=== PATIENT | male | born 1965 | race Caucasian/White ===

== ENCOUNTER 2019-12-01 12:14 | Inpatient (IN) | payer OTHER, SELFPAY ==
[~2019-12-01 12:14] MED LIST: Lidocaine 1% PF 5 ML VIAL ONE; PROPOFOL 200 MG/20 ML VIAL ONE
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
[2019-12-01] MEDS ORDERED: Morphine 4 MG/ML VIAL ONE ×2 (12:36→14:46)
[2019-12-01 12:41] LABS: #Basophils 0.1 thou/uL (0.0-0.2); #Eosinphils 0.1 thou/uL (0.0-0.7); #Lymphocytes 2.6 thou/uL (1.20-3.40); #Neutrophils 9.1 thou/uL (1.40-6.50); %Basophils 0.8 % (0.0-1.0); %Eosinophils 0.8 % (0.0-10.0); %Lymphocytes 20.1 % (21.0-51.0); %Neutrophils 70.3 % (42.0-75.0); Hemoglobin 15.6 g/dL (14.0-18.0); Mean Corpuscular HGB CONC 35.2 g/dL (32.0-36.0); Mean Corpuscular Hemoglobin 32.6 pg (27.0-31.0); Mean Corpuscular Volume 92.6 fL (78.0-98.0); Mean Platelet Volume 7.5 fL (7.4-10.4); Platelet Count 282 thou/uL (130-400); RBC Distribution Width 12.4 % (11.5-14.5); Red Blood Cell (RBC) Count 4.78 mill/uL (4.70-6.10); White Blood Cell (WBC) Count 12.9 thou/uL (4.8-10.8)
[2019-12-01 12:47] LABS: Prothrombin Time 13.4 sec (12.0-14.7)
[2019-12-01 12:53] LABS: PTT 21.5 sec (22.9-36.1)
[2019-12-01 13:02] LABS: ALT (SGPT) 54 U/L (8-55); AST (SGOT) 62 U/L (5-34); Albumin 4.2 g/dL (3.5-5.0); Alkaline Phosphatase 160 U/L (40-110); Anion Gap 15 mmol/L (10-20); BUN (Urea Nitrogen) 15 mg/dL (8.4-25.7); Bilirubin, Total 0.4 mg/dL (0.2-1.2); Calc. Creatinine Clearance 0 mL/min (70-130); Calcium 8.8 mg/dL (7.8-10.44); Carbon Dioxide 21 mmol/L (22-29); Chloride 108 mmol/L (98-107); Estimated GFR-MDRD 63; Globulin 2.9 g/dL (2.4-3.5); Glucose 122 mg/dL (70-105); Lipase 24 U/L (8-78); Potassium 4.2 mmol/L (3.5-5.1); Protein, Total 7.1 g/dL (6.0-8.3); Sodium 140 mmol/L (136-145)
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
[2019-12-01] MEDS ORDERED: Fentanyl 100 MCG/2 ML VIAL ONE ×4 (13:16→17:11)
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
[2019-12-01] MEDS ORDERED: Bacitracin 1 PK ONE (13:46)
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
[2019-12-01] MEDS ORDERED: Iopamidol-370 76% 500 ML 1 ML ONE (14:49)
[2019-12-01] MEDS ORDERED: Ondansetron HCl/PF 4 MG/2 ML Vial IVP PRN (17:09)
[2019-12-01] MEDS ORDERED: Promethazine HCl 25 MG/ML VIAL SLOW IVP PRN (17:09)
[2019-12-01] MEDS ORDERED: Promethazine HCl 25 MG/ML VIAL IM PRN (17:09)
[2019-12-01] MEDS ORDERED: Meperidine HCl/PF 25 MG/ML VIAL SLOW IVP PRN (17:09)
[2019-12-01] MEDS ORDERED: HYDROmorphone 2 MG/ML VIAL SLOW IVP PRN (17:09)
[2019-12-01 17:26] LABS: SARS-CoV-2 NAA Rapid Test Not Detected (NotDetected)
[2019-12-01] MEDS ORDERED: HYDROmorphone 0.5 MG/0.5 ML SYRINGE ONE (17:28)
[2019-12-01] MEDS ORDERED: Dextrose 5% in Water 1,000 ML IV PRN (18:27)
[2019-12-01] MEDS ORDERED: Dextrose 50% Abboject 50 ML SYRINGE SLOW IVP PRN (18:27)
[2019-12-01] MEDS ORDERED: Cyclobenzaprine 10 MG TAB PO PRN (18:27)
[2019-12-01] MEDS ORDERED: traMADol HCl 50 MG TAB PO PRN (18:27)
[2019-12-01] MEDS ORDERED: Sodium Chloride 0.9% 1,000 ML IV SCH (18:27)
[2019-12-01] MEDS ORDERED: Ondansetron PF 4 MG/2 ML Vial IVP PRN (18:27)
[2019-12-01] MEDS ORDERED: hydrALAZINE 20 MG/ML VIAL SLOW IVP PRN (18:27)
[2019-12-01] MEDS ORDERED: Ondansetron ODT 4 MG TAB PO PRN (18:27)
--- NOTE | 2019-12-01 18:34 | RAD ---
RADIOGRAPH RIGHT SHOULDER THREE VIEWS: DATE: 12-01-2019 TIME: 5:56 P.M. HISTORY: Status post reduction of acute, traumatic right proximal humeral fracture. COMPARISON: 11-30-2019 at 1:58 p.m. FINDINGS: The humeral diaphysis is in much closer proximity to the comminuted humeral head now than before, but there is still some displacement. There is lateral angulation of the fracture apex of the humeral ne ck fracture. The humeral head is no longer subluxed relative to the glenoid. IMPRESSION: Interval improvement in alignment after closed reduction, of the comminuted, displaced, severe right humeral head and neck fracture. POS: JIN
--- NOTE | 2019-12-01 19:36 | CT ---
CT OF THE LEFT WRIST WITHOUT CONTRAST: History: Distal radial fracture. FINDINGS: There is a comminuted, dorsally impacted intraarticular distal radial fracture. A small avulsion frac ture of the dorsal aspect of the triquetral bone is noted. A well corticated tiny bony fragment is seen distal to the scaphoid bone, likely old fracture. A que stionable acute fracture in the distal pole of the scaphoid maybe present. There is a small minimally displaced intraarticular fracture of the dorsal aspect of the base of the proximal aspect of the thumb. IMPRESSION: As above. POS: OFF
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
[2019-12-01 19:40] VITALS: BMI 26.9
[2019-12-01] MEDS ORDERED: Morphine 2 MG/ML VIAL SLOW IVP PRN (19:47)
[2019-12-01] MEDS ORDERED: Ketorolac Tromethamine 30 MG/ML VIAL IVP SCH (20:00)
[2019-12-01] MEDS: Gabapentin 300 MG CAP PO SCH (20:27)
[2019-12-01] MEDS ORDERED: Verapamil 120 MG TAB PO SCH (21:00)
[2019-12-01] MEDS ORDERED: Famotidine 20 MG TAB PO SCH (21:00)
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
[2019-12-01] MEDS ORDERED: Ibuprofen 600 MG TAB PO SCH (22:00)
[2019-12-01] MEDS ORDERED: Acetaminophen 325 MG TAB PO SCH (23:59)
[2019-12-01] MEDS ORDERED: traMADol HCl 50 MG TAB PO SCH (23:59)
[2019-12-02] MEDS ORDERED: traMADol HCl 50 MG TAB PO PRN ×3 (00:05→11:32)
[2019-12-02] MEDS ORDERED: Morphine 2 MG/ML VIAL SLOW IVP PRN (00:07)
[2019-12-02] MEDS ORDERED: Ondansetron ODT 4 MG TAB PO PRN (00:07)
[2019-12-02] MEDS ORDERED: Ondansetron PF 4 MG/2 ML Vial IVP PRN ×2 (00:07→11:32)
[2019-12-02] MEDS ORDERED: hydrALAZINE 20 MG/ML VIAL SLOW IVP PRN (00:08)
[2019-12-02] MEDS ORDERED: Dextrose 5% in Water 1,000 ML IV PRN (00:09)
[2019-12-02] MEDS ORDERED: Dextrose 50% Abboject 50 ML SYRINGE SLOW IVP PRN (00:09)
[2019-12-02] MEDS: traMADol HCl 50 MG TAB PO SCH ×5 (00:19→23:34)
[2019-12-02] MEDS: Sodium Chloride 0.9% 1,000 ML IV SCH ×2 (00:20→08:18)
[2019-12-02] MEDS: Acetaminophen 325 MG TAB PO SCH ×5 (00:20→23:34)
[2019-12-02] MEDS: Ibuprofen 600 MG TAB PO SCH ×3 (05:39→21:25)
[2019-12-02] MEDS ORDERED: CEFAZOLIN 2 GM in Premix Bag 1 BAG IVPB SCH (07:30)
[2019-12-02] MEDS: Gabapentin 300 MG CAP PO SCH ×2 (08:15→21:26)
[2019-12-02] MEDS ORDERED: Famotidine 20 MG TAB PO SCH (09:00)
[2019-12-02] MEDS ORDERED: PHENYLEPHRINE-NS 100 MCG/ML 10 ML SYRINGE ONE (09:47)
[2019-12-02] MEDS ORDERED: Lidocaine 1% PF 5 ML VIAL ONE (09:47)
[2019-12-02] MEDS ORDERED: Ropivacaine 0.2% HCl/PF (40 MG/20 ML VIAL) ONE (09:47)
[2019-12-02] MEDS ORDERED: PROPOFOL 200 MG/20 ML VIAL ONE (09:47)
[2019-12-02] MEDS ORDERED: Ondansetron PF 4 MG/2 ML Vial ONE (09:47)
[2019-12-02] MEDS ORDERED: Rocuronium Bromide 10 MG/ML (10ML VIAL) ONE (09:47)
[2019-12-02] MEDS ORDERED: EPHEDRINE 25 MG/5 ML SYRINGE ONE (09:47)
[2019-12-02] MEDS ORDERED: Ropivacaine 0.5% HCl/PF (150 MG/30 ML VIAL) ONE (09:47)
[2019-12-02] MEDS ORDERED: Fentanyl 100 MCG/2 ML VIAL ONE ×2 (11:09→12:12)
[2019-12-02] MEDS ORDERED: Midazolam HCl 2 mg/2 ml Vial ONE (11:09)
[2019-12-02] MEDS ORDERED: Ropivacaine 0.2% 550 ML 550 ML NERVE BLCK SCH (11:32)
[2019-12-02] MEDS ORDERED: Ketorolac Tromethamine 30 MG/ML VIAL IVP PRN (11:32)
[2019-12-02] MEDS ORDERED: Promethazine HCl 25 MG/ML VIAL IM PRN ×2 (11:32→16:15)
[2019-12-02] MEDS ORDERED: HYDROcodone/Acetaminophen 5/325 mg Tablet PO PRN ×2 (11:32)
[2019-12-02] MEDS ORDERED: Zolpidem Tartrate 5 MG TAB PO PRN (11:32)
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
--- NOTE | 2019-12-02 16:06 | RAD ---
XR Humerus Rt 2 View STANDARD History: ORIF Comparison: None. Findings: 5 fluoroscopic images were obtained from the operating room. Reverse right total shoulder a rthroplasty. Impression: Fluoroscopy for surgical purposes.
[2019-12-02] MEDS ORDERED: Promethazine HCl 25 MG/ML VIAL SLOW IVP PRN (16:15)
[2019-12-02] MEDS ORDERED: Ondansetron HCl/PF 4 MG/2 ML Vial IVP PRN (16:15)
[2019-12-02] MEDS: CEFAZOLIN 2 GM in Premix Bag 1 BAG IVPB SCH (21:26)
[2019-12-02] MEDS: Cyclobenzaprine 10 MG TAB PO PRN (23:35)
[2019-12-03] MEDS: Acetaminophen 325 MG TAB PO SCH (05:12)
[2019-12-03] MEDS: traMADol HCl 50 MG TAB PO SCH ×4 (05:12→23:34)
[2019-12-03] MEDS: Ibuprofen 600 MG TAB PO SCH ×3 (05:12→21:24)
[2019-12-03] MEDS: CEFAZOLIN 2 GM in Premix Bag 1 BAG IVPB SCH (05:13)
[2019-12-03 05:25] LABS: Hemoglobin 10.9 g/dL (14.0-18.0)
[2019-12-03 07:10] LABS: Hemoglobin 10.8 g/dL (14.0-18.0); Mean Corpuscular HGB CONC 33.1 g/dL (32.0-36.0); Mean Corpuscular Hemoglobin 31.4 pg (27.0-31.0); Mean Corpuscular Volume 94.9 fL (78.0-98.0); Mean Platelet Volume 7.2 fL (7.4-10.4); Platelet Count 179 thou/uL (130-400); RBC Distribution Width 12.4 % (11.5-14.5); Red Blood Cell (RBC) Count 3.43 mill/uL (4.70-6.10); White Blood Cell (WBC) Count 6.9 thou/uL (4.8-10.8)
[2019-12-03 07:32] LABS: Anion Gap 10 mmol/L (10-20); BUN (Urea Nitrogen) 13 mg/dL (8.4-25.7); Calc. Creatinine Clearance 131 mL/min (70-130); Calcium 7.5 mg/dL (7.8-10.44); Carbon Dioxide 25 mmol/L (22-29); Chloride 105 mmol/L (98-107); Estimated GFR-MDRD Greater than 90; Glucose 106 mg/dL (70-105); Magnesium 1.8 mg/dL (1.6-2.6); Phosphorus 3.2 mg/dL (2.3-4.7); Potassium 3.4 mmol/L (3.5-5.1); Sodium 137 mmol/L (136-145)
[2019-12-03] MEDS ORDERED: Magnesium 2 GM/50 ML 2 GM in Premix Bag 1 BAG IVPB SCH (07:45)
[2019-12-03] MEDS ORDERED: Potassium Phosphate 30 MMOL in Sodium Chloride 0.9% 250 ML 250 ML IVPB SCH (07:45)
[2019-12-03] MEDS: Gabapentin 300 MG CAP PO SCH ×4 (08:12→21:21)
[2019-12-03] MEDS: Enoxaparin Sodium 40 MG/0.4 ML SYRINGE SC SCH (08:12)
[2019-12-03] MEDS: traMADol HCl 50 MG TAB PO PRN (08:46)
[2019-12-03] MEDS: Acetaminophen 500 MG TAB PO SCH ×3 (08:46→21:21)
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
[2019-12-03] MEDS: Cyclobenzaprine 10 MG TAB PO PRN ×2 (11:20→23:36)
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
--- NOTE | 2019-12-04 00:23 | PRG ---
DATE OF SERVICE: 12/03/2019 SUBJECTIVE: The patient was seen during evening rounds, sleeping, in no distress. The patient's nurse reports no complaints or concerns. The patient is postop day #1, status post reverse shoulder arthroplasty to the right. The patient's vital signs are stable and he remains afebrile. The patient's urinary output has been adequate for the patient's age and weight. PLAN: Continue supportive care and pain regimen. We will continue physical and occupational therapy. Job ID: [id number]
[2019-12-04] MEDS: Acetaminophen 500 MG TAB PO SCH ×4 (03:31→21:08)
[2019-12-04 04:59] LABS: #Eosinphils 0.2 thou/uL (0.0-0.7); #Lymphocytes 1.5 thou/uL (1.20-3.40); #Monocytes 0.7 thou/uL (0.11-0.59); #Neutrophils 4.3 thou/uL (1.40-6.50); %Basophils 0.4 % (0.0-1.0); %Eosinophils 3.4 % (0.0-10.0); %Lymphocytes 21.7 % (21.0-51.0); %Monocytes 10.4 % (0.0-10.0); %Neutrophils 64.1 % (42.0-75.0); Hemoglobin 10.9 g/dL (14.0-18.0); INR-International Normal Ratio 1.2; Mean Corpuscular HGB CONC 33.3 g/dL (32.0-36.0); Mean Corpuscular Hemoglobin 31.9 pg (27.0-31.0); Mean Corpuscular Volume 95.7 fL (78.0-98.0); Mean Platelet Volume 7.5 fL (7.4-10.4); Platelet Count 193 thou/uL (130-400); Prothrombin Time 14.7 sec (12.0-14.7); RBC Distribution Width 12.1 % (11.5-14.5); Red Blood Cell (RBC) Count 3.43 mill/uL (4.70-6.10); White Blood Cell (WBC) Count 6.7 thou/uL (4.8-10.8)
[2019-12-04 05:00] LABS: PTT 43.9 sec (22.9-36.1)
[2019-12-04 05:16] LABS: Anion Gap 12 mmol/L (10-20); BUN (Urea Nitrogen) 12 mg/dL (8.4-25.7); Calc. Creatinine Clearance 152 mL/min (70-130); Calcium 7.8 mg/dL (7.8-10.44); Carbon Dioxide 24 mmol/L (22-29); Chloride 104 mmol/L (98-107); Estimated GFR-MDRD Greater than 90; Glucose 102 mg/dL (70-105); Magnesium 2.2 mg/dL (1.6-2.6); Phosphorus 2.8 mg/dL (2.3-4.7); Potassium 3.6 mmol/L (3.5-5.1); Sodium 136 mmol/L (136-145)
[2019-12-04] MEDS: traMADol HCl 50 MG TAB PO SCH ×4 (05:35→23:26)
[2019-12-04] MEDS: Ibuprofen 600 MG TAB PO SCH ×3 (05:35→21:09)
[2019-12-04] MEDS ORDERED: Potassium Phosphate 30 MMOL in Sodium Chloride 0.9% 250 ML 250 ML IVPB SCH (07:30)
[2019-12-04] MEDS: Gabapentin 300 MG CAP PO SCH ×3 (08:02→21:08)
[2019-12-04] MEDS: Enoxaparin Sodium 40 MG/0.4 ML SYRINGE SC SCH (08:04)
[2019-12-04] MEDS ORDERED: Bisacodyl 5 MG TAB PO PRN (09:47)
[2019-12-04] MEDS ORDERED: Ketorolac Tromethamine 30 MG/ML VIAL ONE (10:15)
[2019-12-04] MEDS ORDERED: Ondansetron PF 4 MG/2 ML Vial ONE (10:15)
[2019-12-04] MEDS ORDERED: Metoclopramide HCl 10 MG/2 ML VIAL ONE (10:15)
[2019-12-04] MEDS ORDERED: Dexamethasone 20 MG/5 ML VIAL ONE (10:15)
[2019-12-04] MEDS ORDERED: Lidocaine 1% PF 5 ML VIAL ONE (10:15)
[2019-12-04] MEDS ORDERED: PROPOFOL 200 MG/20 ML VIAL ONE (10:15)
[2019-12-04] MEDS ORDERED: Bupivacaine HCl 0.5%/Epinephrine 1:200,000/PF 30 ml Vial ONE (10:15)
[2019-12-04] MEDS: Polyethylene Glycol 3350 17 GM Packet PO SCH (10:40)
[2019-12-04] MEDS: Senokot S 8.6-50 MG TAB PO SCH ×2 (10:41→21:08)
[2019-12-04] MEDS ORDERED: Fentanyl 100 MCG/2 ML VIAL ONE ×4 (13:43→17:59)
[2019-12-04] MEDS ORDERED: Midazolam HCl 2 mg/2 ml Vial ONE (13:43)
[2019-12-04] MEDS ORDERED: Famotidine/PF 20 mg/2ml Vial ONE (14:24)
[2019-12-04] MEDS ORDERED: Sodium Chloride 0.9% 10 ML ONE (15:02)
[2019-12-04] MEDS ORDERED: Bacitracin Zinc Ointment 30 gm TUBE ONE (15:19)
--- NOTE | 2019-12-04 16:36 | RAD ---
Exam:Intraoperative fluoroscopy HISTORY: ORIF wrist fracture COMPARISON: None FINDINGS: 7 intraoperative fluoroscopic procedures demonstrate internal fixation bridging a distal ra dius fracture. Exposure: 1.09 mGy 1 minute and 34 seconds IMPRESSION: Intraoperative fluoroscopy as above
[2019-12-04] MEDS ORDERED: HYDROmorphone 2 MG/ML VIAL SLOW IVP PRN (17:17)
[2019-12-04] MEDS ORDERED: Meperidine HCl/PF 25 MG/ML VIAL SLOW IVP PRN (17:17)
[2019-12-04] MEDS ORDERED: PACU-Morphine 4MG/ML VIAL SLOW IVP PRN (17:17)
[2019-12-04] MEDS ORDERED: Morphine Sulfate 2 MG/ML SYRINGE SLOW IVP PRN (17:17)
[2019-12-04] MEDS ORDERED: Promethazine HCl 25 MG/ML VIAL IM PRN (17:17)
[2019-12-04] MEDS ORDERED: Ondansetron HCl/PF 4 MG/2 ML Vial IVP PRN (17:17)
[2019-12-04] MEDS ORDERED: Promethazine HCl 25 MG/ML VIAL SLOW IVP PRN (17:17)
[2019-12-04] MEDS ORDERED: Morphine 4 MG/ML VIAL SLOW IVP PRN (17:45)
[2019-12-04] MEDS: ceFAZolin 1 GM/D5W 1 GM in Premix Bag 1 BAG IVPB SCH (21:09)
--- NOTE | 2019-12-04 21:37 | PRG ---
DATE OF SERVICE: 12/04/2019 SUBJECTIVE: The patient was seen during evening rounds, awake, alert, in no distress. The patient has just returned from the OR after repair of his left radius. The patient's pain is well controlled at this time. The patient is tolerating a regular diet. OBJECTIVE: Vital signs are stable. The patient is afebrile. PLAN: Continue supportive care and pain regimen. Physical and occupational therapy. Continue pulmonary toilet. Job ID: [id number]
[2019-12-04] MEDS ORDERED: CEFAZOLIN 2 GM in Premix Bag 1 BAG IVPB SCH (22:00)
[2019-12-05] MEDS: Acetaminophen 500 MG TAB PO SCH ×3 (03:29→15:07)
[2019-12-05] MEDS: traMADol HCl 50 MG TAB PO PRN (04:26)
[2019-12-05 05:07] LABS: Hemoglobin 11.2 g/dL (14.0-18.0); Mean Corpuscular HGB CONC 33.9 g/dL (32.0-36.0); Mean Corpuscular Volume 94.4 fL (78.0-98.0); Mean Platelet Volume 7.4 fL (7.4-10.4); Platelet Count 220 thou/uL (130-400); RBC Distribution Width 12.1 % (11.5-14.5); White Blood Cell (WBC) Count 8.9 thou/uL (4.8-10.8)
[2019-12-05] MEDS: traMADol HCl 50 MG TAB PO SCH (05:25)
[2019-12-05] MEDS: ceFAZolin 1 GM/D5W 1 GM in Premix Bag 1 BAG IVPB SCH ×2 (05:25→13:16)
[2019-12-05] MEDS: Ibuprofen 600 MG TAB PO SCH ×2 (05:25→13:16)
[2019-12-05 05:26] LABS: Anion Gap 14 mmol/L (10-20); BUN (Urea Nitrogen) 13 mg/dL (8.4-25.7); Calc. Creatinine Clearance 156 mL/min (70-130); Calcium 8.3 mg/dL (7.8-10.44); Carbon Dioxide 21 mmol/L (22-29); Chloride 106 mmol/L (98-107); Estimated GFR-MDRD Greater than 90; Glucose 132 mg/dL (70-105); Magnesium 2.1 mg/dL (1.6-2.6); Phosphorus 3.2 mg/dL (2.3-4.7); Potassium 4.3 mmol/L (3.5-5.1); Sodium 137 mmol/L (136-145)
[2019-12-05] MEDS ORDERED: PHOS-NAK 1 PKT PACK PO SCH (07:30)
[2019-12-05] MEDS: Senokot S 8.6-50 MG TAB PO SCH (07:58)
[2019-12-05] MEDS: Polyethylene Glycol 3350 17 GM Packet PO SCH (07:58)
[2019-12-05] MEDS: Enoxaparin Sodium 40 MG/0.4 ML SYRINGE SC SCH (07:59)
[2019-12-05] MEDS: Gabapentin 300 MG CAP PO SCH ×2 (07:59→15:07)
[2019-12-05] MEDS ORDERED: traMADol HCl 50 MG TAB PO SCH (12:00)
[2019-12-05] MEDS: Cyclobenzaprine 10 MG TAB PO PRN (13:18)
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
[2019-12-05 15:10] VITALS: BP 135/65; TEMP 98.4
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
--- NOTE | 2019-12-07 15:12 | EKG ---
Test Reason : Blood Pressure : / mmHG Vent. Rate : 058 BPM Atrial Rate : 058 BPM P-R Int : 178 ms QRS Dur : 106 ms QT Int : 450 ms P-R-T Axes : 043 035 081 degrees QTc Int : 441 ms Sinus bradycardia Abnormal ECG Confirmed by NILDA LOPEZ DO ([id number]), manuscript editor IFEANYI WHALEN ([id number]) on 12/07/2019 3:12:14 PM Referred By: Confirmed By:NILDA LOPEZ DO
== END 2019-12-05 15:10 | disposition home or self-care (01) | DRG 483 ==
LOC: ERS 12:14 → SURG A 16:48 → ERS 16:48 → SURG A 19:29
PROVIDERS: ADMIT Specialist; ATTEND Specialist
PROC: 0PS Upper Bones, Reposition (ICD-10-PCS; 2019-12-01)
PROC: 0RRJ00Z Replacement of Right Shoulder Joint with Reverse Ball and Socket Synthetic Substitute, Open Approach (ICD-10-PCS; principal; 2019-12-02)
PROC: 0PSJ04Z Reposition Left Radius with Internal Fixation Device, Open Approach (ICD-10-PCS; 2019-12-04)
DX: S42.201A Unspecified fracture of upper end of right humerus, initial encounter for closed fracture (principal); S22.31XA Fracture of one rib, right side, initial encounter for closed fracture; S52.512A Displaced fracture of left radial styloid process, initial encounter for closed fracture; I10 Essential (primary) hypertension; V89.2XXA Person injured in unspecified motor-vehicle accident, traffic, initial encounter
CPT/HCPCS: 36415; 70450; 71045; 71260; 72125; 74177; 76000; 80048; 80053; 83690; 83735; 84100; 85014; 85018; 85025; 85027; 85610; 85730; 93005; 96374; 96375; 96376; A4306; C1713; C1776; G0390; J0670; J0690; J1100; J1170; J1650; J1885; J2250; J2270; J2405; J2704; J2765; J2795; J3010; J3475; J3490; J7050; Q9967; S0028; U0002